=== PATIENT | female | born 1985 | race Hispanic/Latino ===

== ENCOUNTER 2017-08-12 08:56 | Inpatient (IN) | payer SELFPAY ==
[~2017-08-12] VITALS: Ht 152.4 cm; Wt 72.6 kg
[2017-08-12 09:19] LABS: APPEARANCE,URINE Cloudy (CLEAR); BILIRUBIN,URINE Negative (NEGATIVE); COLOR,URINE Yellow (YELLOW); GLUCOSE, URINE (UA) Negative (NEGATIVE); KETONES,URINE Negative (NEGATIVE); LEUKOCYTE ESTERASE ,URINE Moderate (NEGATIVE); NITRATE,URINE Negative (NEGATIVE); OCCULT BLOOD,URINE Small (NEGATIVE); PH,URINE 5.5 (5.0-8.0); PROTEIN,URINE Trace (NEGATIVE)
[2017-08-12 09:20] LABS: HCG,QUAL RESULT NEGATIVE (NEGATIVE)
[2017-08-12 09:27] LABS: BACTERIA,URINE Few /HPF (None Seen); SQUAMOUS EPITHELIAL CELL,UR Moderate /HPF (0-2)
[2017-08-12 09:54] LABS: BASOPHILS % (AUTO) 0.3 % (0.0-5.0); EOSINOPHILS % (AUTO) 0.1 % (0.0-8.0); HEMATOCRIT 38.3 % (36-48); LYMPHOCYTES % (AUTO) 10.1 % (21.0-51.0); MEAN CORPUSCULAR HEMOGLOBIN 27.7 pg (27.0-33.0); MEAN CORPUSCULAR HGB CONC 32.8 g/dL (32.0-36.0); MEAN CORPUSCULAR VOLUME 84.6 fL (79-99); MONOCYTES % (AUTO) 8.3 % (3.0-13.0); NEUTROPHILS % (AUTO) 81.2 % (40.0-77.0); PLATELET COUNT (AUTO) 284 K/uL (130-400); RED BLOOD CELL COUNT(AUTO) 4.53 MIL/uL (4.00-5.50); RED CELL DISTRIBUTION WIDTH 13.5 % (11.0-15.5); WHITE BLOOD COUNT (AUTO) 19.8 K/uL (4.8-10.8)
[2017-08-12 10:01] LABS: CREATININE 1.2 mg/dL (0.5-1.5); POTASSIUM 3.8 mmol/L (3.5-5.1)
[2017-08-12] MEDS ORDERED: KETOROLAC TROMETHAMINE 30MG/ML ONE (10:01)
[2017-08-12] MEDS ORDERED: SODIUM CHLORIDE 0.9% 1000ML 1,000 ML IV ONE (10:01)
[2017-08-12] MEDS ORDERED: HYOSCYAMINE SULFATE 0.125 MG TAB.SUBL SL ONE (10:01)
[2017-08-12] MEDS ORDERED: ACETAMINOPHEN 325 MG TAB ONE (10:01)
[2017-08-12] MEDS ORDERED: ONDANSETRON HCL MDV 20ML 2 MG/ML VIAL ONE (10:02)
[2017-08-12 10:06] LABS: ALBUMIN 3.6 g/dL (3.5-5.0); BILIRUBIN,TOTAL 1.3 mg/dL (0.2-1.0)
[2017-08-12] MEDS ORDERED: IOPAMIDOL-370 75 ML VIAL IV ONE (11:10)
[2017-08-12] MEDS ORDERED: MORPHINE SULFATE 4 MG/1ML SYG ONE (11:59)
[2017-08-12] MEDS ORDERED: CEFTRIAXONE SODIUM 1 GM ONE (13:02)
[2017-08-12] MEDS ORDERED: ACETAMINOPHEN 325 MG TAB PO PRN (14:30)
[2017-08-12] MEDS ORDERED: LACTULOSE 20 GM/30 ML UDCUP PO PRN (14:30)
[2017-08-12] MEDS ORDERED: CEFTRIAXONE 1GM/D5W 50ML 50 ML IV SCH (14:30)
[2017-08-12] MEDS: SODIUM CHLORIDE 0.9% 1000ML 1,000 ML IV SCH ×2 (14:30→15:40)
[2017-08-12] MEDS ORDERED: MORPHINE SULFATE 2 MG/ML 1ML SYG IV PRN (14:30)
[2017-08-12] MEDS ORDERED: HYDRALAZINE HCL 20 MG/ML VIAL IV PRN (14:30)
[2017-08-12] MEDS: CEFTRIAXONE SODIUM 1 GM IVP SCH (15:00)
[2017-08-12 16:18] VITALS: BP 105/78
[2017-08-12 20:00] VITALS: BP 119/78
[2017-08-12] MEDS: FAMOTIDINE 20MG TAB 20 MG TAB PO SCH (20:33)
[2017-08-12] MEDS: KETOROLAC TROMETHAMINE 15MG/ML IV PRN (22:01)
[2017-08-12] MEDS: ONDANSETRON HCL MDV 20ML 2 MG/ML VIAL IV PRN (22:01)
[2017-08-12 23:53] VITALS: BP 108/68
[2017-08-13] VITALS (25 sets, daily range): BP systolic 90–139; BP diastolic 64–94
[2017-08-13] MEDS: SODIUM CHLORIDE 0.9% 1000ML 1,000 ML IV SCH ×4 (03:12→22:56)
[2017-08-13 05:19] LABS: HEMATOCRIT 33.8 % (36-48); MEAN CORPUSCULAR HEMOGLOBIN 28.7 pg (27.0-33.0); MEAN CORPUSCULAR HGB CONC 33.4 g/dL (32.0-36.0); PLATELET COUNT (AUTO) 264 K/uL (130-400); RED BLOOD CELL COUNT(AUTO) 3.93 MIL/uL (4.00-5.50); RED CELL DISTRIBUTION WIDTH 13.6 % (11.0-15.5); WHITE BLOOD COUNT (AUTO) 15.4 K/uL (4.8-10.8)
[2017-08-13 05:27] LABS: CREATININE 1.2 mg/dL (0.5-1.5); POTASSIUM 4.2 mmol/L (3.5-5.1)
[2017-08-13] MEDS: KETOROLAC TROMETHAMINE 15MG/ML IV PRN (06:29)
[2017-08-13] MEDS: ONDANSETRON HCL MDV 20ML 2 MG/ML VIAL IV PRN (06:30)
[2017-08-13] MEDS: FAMOTIDINE 20MG TAB 20 MG TAB PO SCH ×2 (07:18→20:39)
[2017-08-13] MEDS: ENOXAPARIN SODIUM 40 MG/0.4 ML SYRINGE SQ SCH (07:19)
[2017-08-13] MEDS ORDERED: LACTATED RINGERS 1000ML 1,000 ML IV ONE (10:35)
[2017-08-13] MEDS ORDERED: ISOVUE-370 50ML VIAL IV ONE (12:39)
[2017-08-13] MEDS ORDERED: DEXAMETHASONE SOD PHOSPHATE 10MG/ML 1ML VIAL ONE (12:57)
[2017-08-13] MEDS ORDERED: MIDAZOLAM HCL 1 MG/ML 2ML VIAL ONE (12:57)
[2017-08-13] MEDS ORDERED: GLYCOPYRROLATE 0.2 MG/ML 5 ML VIAL ONE (12:57)
[2017-08-13] MEDS ORDERED: LIDOCAINE PF 2% 5ML ABBOJECT ONE (12:57)
[2017-08-13] MEDS ORDERED: FENTANYL CITRATE PF 50 MCG/1 ML 2ML VIAL ONE (12:58)
[2017-08-13] MEDS ORDERED: PROPOFOL 10 MG/ML 20ML VIAL IV ONE (12:58)
[2017-08-13] MEDS: CEFTRIAXONE SODIUM 1 GM IVP SCH ×2 (13:30→15:00)
[2017-08-13] MEDS ORDERED: KETOROLAC TROMETHAMINE 30MG/ML ONE (14:51)
[2017-08-14 04:00] VITALS: BP 122/81
[2017-08-14 05:02] LABS: HEMATOCRIT 34.3 % (36-48); MEAN CORPUSCULAR HEMOGLOBIN 28.1 pg (27.0-33.0); MEAN CORPUSCULAR HGB CONC 32.7 g/dL (32.0-36.0); MEAN CORPUSCULAR VOLUME 85.7 fL (79-99); PLATELET COUNT (AUTO) 297 K/uL (130-400); RED CELL DISTRIBUTION WIDTH 13.4 % (11.0-15.5); WHITE BLOOD COUNT (AUTO) 14.7 K/uL (4.8-10.8)
[2017-08-14 05:07] LABS: CREATININE 0.9 mg/dL (0.5-1.5); POTASSIUM 3.8 mmol/L (3.5-5.1)
[2017-08-14 07:30] VITALS: BP 125/78
[2017-08-14] MEDS: FAMOTIDINE 20MG TAB 20 MG TAB PO SCH ×2 (10:19→21:01)
[2017-08-14] MEDS: TAMSULOSIN HCL 0.4 MG CAP.ER.24H PO SCH (10:19)
[2017-08-14] MEDS: ENOXAPARIN SODIUM 40 MG/0.4 ML SYRINGE SQ SCH (10:27)
[2017-08-14 11:00] VITALS: BP 130/84
[2017-08-14] MEDS: CEFTRIAXONE SODIUM 1 GM IVP SCH (15:17)
[2017-08-14 16:00] VITALS: BP 120/85
[2017-08-14 19:43] VITALS: BP 144/96
[2017-08-14] MEDS: SODIUM CHLORIDE 0.9% 1000ML 1,000 ML IV SCH (20:51)
[2017-08-14 23:44] VITALS: BP 136/87
[2017-08-15 04:00] VITALS: BP 135/81
[2017-08-15 06:00] LABS: BASOPHILS % (AUTO) 0.6 % (0.0-5.0); EOSINOPHILS % (AUTO) 2.1 % (0.0-8.0); HEMATOCRIT 35.4 % (36-48); LYMPHOCYTES % (AUTO) 16.6 % (21.0-51.0); MEAN CORPUSCULAR HEMOGLOBIN 27.6 pg (27.0-33.0); MEAN CORPUSCULAR HGB CONC 32.5 g/dL (32.0-36.0); MEAN CORPUSCULAR VOLUME 84.9 fL (79-99); MONOCYTES % (AUTO) 7.6 % (3.0-13.0); NEUTROPHILS % (AUTO) 73.1 % (40.0-77.0); PLATELET COUNT (AUTO) 308 K/uL (130-400); RED BLOOD CELL COUNT(AUTO) 4.17 MIL/uL (4.00-5.50); RED CELL DISTRIBUTION WIDTH 13.1 % (11.0-15.5); WHITE BLOOD COUNT (AUTO) 14.2 K/uL (4.8-10.8)
[2017-08-15 06:08] LABS: CREATININE 0.8 mg/dL (0.5-1.5); POTASSIUM 3.8 mmol/L (3.5-5.1)
[2017-08-15 08:00] VITALS: BP 129/89
[2017-08-15] MEDS: TAMSULOSIN HCL 0.4 MG CAP.ER.24H PO SCH (09:34)
[2017-08-15] MEDS: FAMOTIDINE 20MG TAB 20 MG TAB PO SCH (09:35)
[2017-08-15] MEDS: ENOXAPARIN SODIUM 40 MG/0.4 ML SYRINGE SQ SCH (09:35)
[2017-08-15 11:46] VITALS: BP 127/84
[2017-08-15] MEDS ORDERED: CEPH-578 PO (15:45)
[2017-08-15 16:00] VITALS: BP 138/93
== END 2017-08-15 17:55 | disposition home or self-care (01) | DRG 872 ==
LOC: EDH 08:56 → EDHIP 08:57 → 4CH 14:53
PROVIDERS: ADMIT Family Medicine; ATTEND Family Medicine
PROC: 0T788DZ Dilation of Bilateral Ureters with Intraluminal Device, Via Natural or Artificial Opening Endoscopic (ICD-10-PCS; principal; 2017-08-13 13:12)
DX: A41.9 Sepsis, unspecified organism (principal); E66.9 Obesity, unspecified; N13.2 Hydronephrosis with renal and ureteral calculous obstruction; N39.0 Urinary tract infection, site not specified; Z87.442 Personal history of urinary calculi; Z68.31 Body mass index [BMI] 31.0-31.9, adult; Z91.19 Patient's noncompliance with other medical treatment and regimen
CPT/HCPCS: 36415; 74177; 74420; 76700; 80048; 80053; 81001; 81025; 83690; 83735; 85025; 85027; 87040; 87088; A4218; A4344; A4354; C1758; C1769; C2617; J0696; J1100; J1650; J1885; J2001; J2250; J2270; J2704; J3010; J3490; J7030; J7120; Q9967

== ENCOUNTER 2017-09-02 19:16 | Observation (INO) | payer SELFPAY ==
[~2017-09-02] VITALS: Ht 152.4 cm; Wt 77.4 kg
[~2017-09-02 19:16] MED LIST: CEPH-578 PO
[2017-09-02 19:50] LABS: BASOPHILS % (AUTO) 0.8 % (0.0-5.0); EOSINOPHILS % (AUTO) 5.3 % (0.0-8.0); HEMATOCRIT 37.1 % (36-48); LYMPHOCYTES % (AUTO) 18.8 % (21.0-51.0); MEAN CORPUSCULAR HEMOGLOBIN 28.5 pg (27.0-33.0); MEAN CORPUSCULAR HGB CONC 33.6 g/dL (32.0-36.0); MEAN CORPUSCULAR VOLUME 84.7 fL (79-99); MONOCYTES % (AUTO) 5.3 % (3.0-13.0); NEUTROPHILS % (AUTO) 69.8 % (40.0-77.0); NUCLEATED RED BLOOD CELLS 0.1 % (0.0-0.19); PLATELET COUNT (AUTO) 348 K/uL (130-400); RED BLOOD CELL COUNT(AUTO) 4.38 MIL/uL (4.00-5.50); RED CELL DISTRIBUTION WIDTH 13.8 % (11.0-15.5); WHITE BLOOD COUNT (AUTO) 12.7 K/uL (4.8-10.8)
[2017-09-02 19:56] LABS: CREATININE 0.9 mg/dL (0.5-1.5); POTASSIUM 3.5 mmol/L (3.5-5.1)
[2017-09-02] MEDS ORDERED: ACETAMINOPHEN-CODEINE ELIXIR 5 ML UDCUP ONE (20:00)
[2017-09-02 20:25] LABS: APPEARANCE,URINE Turbid (CLEAR); BILIRUBIN,URINE Small (NEGATIVE); COLOR,URINE Red (YELLOW); GLUCOSE, URINE (UA) Negative (NEGATIVE); KETONES,URINE Negative (NEGATIVE); LEUKOCYTE ESTERASE ,URINE Large (NEGATIVE); NITRATE,URINE Negative (NEGATIVE); OCCULT BLOOD,URINE Large (NEGATIVE); PROTEIN,URINE 300 (NEGATIVE); UROBILINOGEN,URINE 0.2 mg/dL (0.2-1.0)
[2017-09-02 20:39] LABS: RBC,URINE TNTC /HPF (0-1)
[2017-09-02 20:40] LABS: BACTERIA,URINE Rare /HPF (None Seen)
[2017-09-02 20:41] LABS: SQUAMOUS EPITHELIAL CELL,UR Rare /HPF (0-2)
[2017-09-02] MEDS ORDERED: CEFTRIAXONE SODIUM 1 GM ONE (21:11)
[2017-09-03] VITALS (22 sets, daily range): BP systolic 91–127; BP diastolic 61–88
[2017-09-03] MEDS ORDERED: ONDANSETRON HCL MDV 20ML 2 MG/ML VIAL IVP PRN (02:00)
[2017-09-03] MEDS ORDERED: MORPHINE SULFATE 2 MG/ML 1ML SYG IVP PRN (02:00)
[2017-09-03] MEDS ORDERED: KETOROLAC TROMETHAMINE 15MG/ML IV PRN (02:00)
[2017-09-03] MEDS ORDERED: KETOROLAC TROMETHAMINE 15MG/ML ONE (02:05)
[2017-09-03] MEDS: SODIUM CHLORIDE 0.9% 1000ML 1,000 ML IV SCH ×2 (03:30→13:30)
[2017-09-03] MEDS ORDERED: SODIUM CHLORIDE 0.9% 1000ML 1,000 ML IV ONE (03:31)
[2017-09-03 05:17] LABS: INR 0.94 (0.85-1.15); PARTIAL THROMBOPLASTIN TIME 27.2 SEC (26.3-35.5); PROTHROMBIN TIME 9.9 SEC (9.6-11.6)
[2017-09-03] MEDS ORDERED: CEFTRIAXONE SODIUM 1 GM IVP SCH (09:00)
[2017-09-03] MEDS ORDERED: ISOVUE-370 50ML VIAL IV ONE (10:30)
[2017-09-03] MEDS ORDERED: PROPOFOL 10 MG/ML 20ML VIAL IV ONE (10:56)
[2017-09-03] MEDS ORDERED: MIDAZOLAM HCL 1 MG/ML 2ML VIAL ONE (10:56)
[2017-09-03] MEDS ORDERED: FENTANYL CITRATE PF 50 MCG/1 ML 2ML VIAL ONE (10:56)
[2017-09-03] MEDS ORDERED: LEVO500T2 PO (12:43)
[2017-09-03] MEDS ORDERED: ONDANSETRON HCL 4 MG/2 ML VIAL ONE (12:43)
[2017-09-03] MEDS ORDERED: ROCURONIUM BROMIDE 10MG/1ML 5ML VL ONE (12:43)
[2017-09-03] MEDS ORDERED: LIDOCAINE PF 2% 5ML ABBOJECT ONE (12:43)
[2017-09-03] MEDS ORDERED: SUCCINYLCHOLINE CHLORIDE 20 MG/ML 10 ML VIAL ONE (12:43)
[2017-09-03] MEDS ORDERED: SUB TO ALBUTEROL 2.5MG/3ML NEBULES PER P&T IH ONE (12:43)
[2017-09-03] MEDS ORDERED: MEPERIDINE-PF 25 MG/ML SYG ONE (12:58)
[2017-09-03] MEDS ORDERED: KETOROLAC TROMETHAMINE 30MG/ML ONE (13:28)
== END 2017-09-03 18:30 | disposition home or self-care (01) ==
LOC: EDH 19:16 → EDHIP 19:17 → 3CH 09-03 01:15
PROVIDERS: ADMIT Family Medicine; ATTEND Family Medicine
DX: N20.2 Calculus of kidney with calculus of ureter (principal); E66.9 Obesity, unspecified; Z82.49 Family history of ischemic heart disease and other diseases of the circulatory system; Z87.442 Personal history of urinary calculi
CPT/HCPCS: 36415 ×2; 52332; 76000; 80048; 81001; 85025; 85610; 85730; 88300; 93005; 96374; 96375; 99285; A4218; A4354; A4358; A4510; A4649; C1758; C1769; C1894; C2617; G0378 ×23; J0330; J0696 ×2; J1885 ×2; J2001; J2175; J2250; J2405; J2704; J3010; J3490; J7030 ×2; J7120; Q9967

== ENCOUNTER 2017-09-09 03:53 | Inpatient (IN) | payer OTHER ==
[2017-09-09] VITALS (20 sets, daily range): BP systolic 103–128; BP diastolic 54–92
[~2017-09-09] VITALS: Ht 152.4 cm; Wt 77.0 kg
[~2017-09-09 03:53] MED LIST changes: -CEPH-578 PO; +LEVO500T2 PO
[2017-09-09 04:22] LABS: APPEARANCE,URINE SL CLOUDY (CLEAR); BILIRUBIN,URINE NEGATIVE (NEGATIVE); COLOR,URINE YELLOW (YELLOW); GLUCOSE, URINE (UA) NEGATIVE (NEGATIVE); HCG,QUAL RESULT NEGATIVE (NEGATIVE); KETONES,URINE NEGATIVE (NEGATIVE); LEUKOCYTE ESTERASE ,URINE MODERATE (NEGATIVE); NITRATE,URINE NEGATIVE (NEGATIVE); OCCULT BLOOD,URINE LARGE (NEGATIVE); PH,URINE 6.5 (5.0-8.0); PROTEIN,URINE >=300 (NEGATIVE); UROBILINOGEN,URINE 0.2 mg/dL (0.2-1.0)
[2017-09-09 04:27] LABS: RBC,URINE 26-50 /HPF (0-1); WBC,URINE 51-100 /HPF (0-1)
[2017-09-09 04:28] LABS: BACTERIA,URINE Moderate /HPF (None Seen)
[2017-09-09] MEDS ORDERED: ONDANSETRON HCL 4 MG/2 ML VIAL ONE ×2 (04:41→12:30)
[2017-09-09] MEDS ORDERED: KETOROLAC TROMETHAMINE 15MG/ML ONE (04:42)
[2017-09-09] MEDS ORDERED: MORPHINE SULFATE 4 MG/1ML SYG ONE ×2 (04:43→10:12)
[2017-09-09] MEDS ORDERED: SODIUM CHLORIDE 0.9% 500ML 500 ML IV ONE (04:43)
[2017-09-09 09:51] LABS: CREATININE 2.9 mg/dL (0.5-1.5); POTASSIUM 4.7 mmol/L (3.5-5.1)
[2017-09-09] MEDS ORDERED: ONDANSETRON HCL MDV 20ML 2 MG/ML VIAL ONE (10:11)
[2017-09-09] MEDS ORDERED: ISOVUE-370 50ML VIAL IV ONE (12:06)
[2017-09-09] MEDS ORDERED: LACTATED RINGERS 1000ML 1,000 ML IV ONE (12:10)
[2017-09-09] MEDS: CEFTRIAXONE SODIUM 1 GM ONE ×2 (12:17→12:51)
[2017-09-09] MEDS ORDERED: ONDANSETRON HCL 4 MG/2 ML VIAL IVP ONE (12:26)
[2017-09-09] MEDS ORDERED: GLYCOPYRROLATE 0.2 MG/ML 5 ML VIAL IM ONE (12:26)
[2017-09-09] MEDS ORDERED: DEXAMETHASONE SOD PHOSPHATE 10MG/ML 1ML VIAL IM ONE (12:26)
[2017-09-09] MEDS ORDERED: LIDOCAINE PF 2% 5ML ABBOJECT IVP ONE (12:26)
[2017-09-09] MEDS ORDERED: PROPOFOL 10 MG/ML 20ML VIAL IV ONE ×2 (12:27→12:30)
[2017-09-09] MEDS ORDERED: NEOSTIGMINE 5MG/5ML SYR IV ONE ×3 (12:27→13:08)
[2017-09-09] MEDS ORDERED: DEXAMETHASONE SOD PHOSPHATE 10MG/ML 1ML VIAL ONE (12:30)
[2017-09-09] MEDS ORDERED: LIDOCAINE PF 2% 5ML ABBOJECT ONE (12:30)
[2017-09-09] MEDS ORDERED: MIDAZOLAM HCL 1 MG/ML 2ML VIAL ONE (12:30)
[2017-09-09] MEDS ORDERED: GLYCOPYRROLATE 0.2 MG/ML 5 ML VIAL ONE ×2 (12:30→13:09)
[2017-09-09] MEDS ORDERED: FENTANYL CITRATE PF 50 MCG/1 ML 2ML VIAL ONE ×2 (12:30→13:08)
[2017-09-09] MEDS ORDERED: ARTIFICIAL TEARS 3.5 GM OINTMENT ONE (13:08)
[2017-09-09] MEDS ORDERED: ROCURONIUM BROMIDE 10MG/1ML 5ML VL ONE (13:08)
[2017-09-09] MEDS ORDERED: SUCCINYLCHOLINE CHLORIDE 20 MG/ML 10 ML VIAL ONE (13:08)
[2017-09-09] MEDS ORDERED: LIDOCAINE HCL 2% JELLY 5 ML ONE (13:09)
[2017-09-09 14:19] LABS: CREATININE 3.2 mg/dL (0.5-1.5)
[2017-09-09] MEDS: LACTATED RINGERS 1000ML 1,000 ML IV SCH (15:30)
[2017-09-09] MEDS ORDERED: HYDROCODONE/ACETAMINOPHEN 5/325 MG TAB PO PRN ×2 (15:45)
[2017-09-10 00:25] VITALS: BP_SYST 100; BP_SYST 105; BP_DIAS 61; BP_DIAS 63
[2017-09-10 04:15] VITALS: BP 108/57
[2017-09-10 04:50] LABS: HEMATOCRIT 33.2 % (36-48); MEAN CORPUSCULAR HEMOGLOBIN 28.9 pg (27.0-33.0); MEAN CORPUSCULAR HGB CONC 33.8 g/dL (32.0-36.0); MEAN CORPUSCULAR VOLUME 85.3 fL (79-99); PLATELET COUNT (AUTO) 295 K/uL (130-400); RED BLOOD CELL COUNT(AUTO) 3.89 MIL/uL (4.00-5.50); RED CELL DISTRIBUTION WIDTH 13.7 % (11.0-15.5); WHITE BLOOD COUNT (AUTO) 15.7 K/uL (4.8-10.8)
[2017-09-10 04:56] LABS: CREATININE 0.9 mg/dL (0.5-1.5); POTASSIUM 4.4 mmol/L (3.5-5.1)
[2017-09-10 07:54] VITALS: BP 115/69
[2017-09-10] MEDS ORDERED: CEFTRIAXONE 1GM/D5W 50ML 50 ML IV SCH (12:00)
[2017-09-10 12:11] VITALS: BP 109/69
[2017-09-10] MEDS: LACTATED RINGERS 1000ML 1,000 ML IV SCH ×2 (13:46)
[2017-09-10] MEDS: CEFTRIAXONE SODIUM 1 GM IVP SCH (13:47)
[2017-09-10 16:42] VITALS: BP 111/74
[2017-09-10 19:20] VITALS: BP 129/86
[2017-09-11] MEDS: LACTATED RINGERS 1000ML 1,000 ML IV SCH ×3 (02:16→22:24)
[2017-09-11 04:15] VITALS: BP 131/83
[2017-09-11 08:02] VITALS: BP 125/86
[2017-09-11 10:55] VITALS: BP 120/66
[2017-09-11] MEDS: CEFTRIAXONE SODIUM 1 GM IVP SCH (11:00)
[2017-09-11 17:29] VITALS: BP 102/79
[2017-09-11 19:00] VITALS: BP 112/77
[2017-09-11 23:00] VITALS: BP 108/66
[2017-09-12 03:00] VITALS: BP 116/73
[2017-09-12] MEDS: LACTATED RINGERS 1000ML 1,000 ML IV SCH (03:30)
[2017-09-12 04:02] LABS: HEMATOCRIT 35.5 % (36-48); MEAN CORPUSCULAR HEMOGLOBIN 28.6 pg (27.0-33.0); MEAN CORPUSCULAR HGB CONC 33.4 g/dL (32.0-36.0); MEAN CORPUSCULAR VOLUME 85.5 fL (79-99); PLATELET COUNT (AUTO) 330 K/uL (130-400); RED BLOOD CELL COUNT(AUTO) 4.15 MIL/uL (4.00-5.50); RED CELL DISTRIBUTION WIDTH 13.5 % (11.0-15.5); WHITE BLOOD COUNT (AUTO) 12.5 K/uL (4.8-10.8)
[2017-09-12 04:28] LABS: CREATININE 0.8 mg/dL (0.5-1.5); POTASSIUM 4.2 mmol/L (3.5-5.1)
[2017-09-12 08:00] VITALS: BP 115/82
[2017-09-12] MEDS: CEFUROXIME AXETIL 250 MG TABLET PO SCH ×2 (09:15→20:35)
[2017-09-12 11:51] VITALS: BP 110/74
[2017-09-12 16:00] VITALS: BP 119/76
[2017-09-12 19:00] VITALS: BP 108/73
[2017-09-12 23:00] VITALS: BP 102/69
[2017-09-13 03:57] VITALS: BP 108/72
[2017-09-13 08:13] VITALS: BP 115/73
[2017-09-13] MEDS: CEFUROXIME AXETIL 250 MG TABLET PO SCH (08:28)
[2017-09-13] MEDS ORDERED: Cefuroxime Axetil PO (10:17)
[2017-09-13 10:38] LABS: BASOPHILS % (AUTO) 0.5 % (0.0-5.0); EOSINOPHILS % (AUTO) 4.3 % (0.0-8.0); HEMATOCRIT 36.7 % (36-48); MEAN CORPUSCULAR HEMOGLOBIN 27.9 pg (27.0-33.0); MEAN CORPUSCULAR HGB CONC 33.1 g/dL (32.0-36.0); MEAN CORPUSCULAR VOLUME 84.4 fL (79-99); MONOCYTES % (AUTO) 7.1 % (3.0-13.0); NEUTROPHILS % (AUTO) 65.1 % (40.0-77.0); PLATELET COUNT (AUTO) 363 K/uL (130-400); RED BLOOD CELL COUNT(AUTO) 4.35 MIL/uL (4.00-5.50); RED CELL DISTRIBUTION WIDTH 13.5 % (11.0-15.5); WHITE BLOOD COUNT (AUTO) 12.3 K/uL (4.8-10.8)
[2017-09-13 12:08] VITALS: BP 97/55
== END 2017-09-13 13:20 | disposition home or self-care (01) | DRG 694 ==
LOC: EDH 03:53 → EDHIP 03:54 → OBSVTOIN 03:54 → 3CH 15:00
PROVIDERS: ADMIT Internal Medicine; ATTEND Internal Medicine
PROC: 0T768DZ Dilation of Right Ureter with Intraluminal Device, Via Natural or Artificial Opening Endoscopic (ICD-10-PCS; principal; 2017-09-09 12:40)
PROC: BT1F1ZZ Fluoroscopy of Left Kidney, Ureter and Bladder using Low Osmolar Contrast (ICD-10-PCS; 2017-09-09 12:40)
PROC: BT1D1ZZ Fluoroscopy of Right Kidney, Ureter and Bladder using Low Osmolar Contrast (ICD-10-PCS; 2017-09-09 12:40)
DX: N13.2 Hydronephrosis with renal and ureteral calculous obstruction (principal); N17.9 Acute kidney failure, unspecified; D72.829 Elevated white blood cell count, unspecified; N21.0 Calculus in bladder; Z87.442 Personal history of urinary calculi
CPT/HCPCS: 36415; 74176; 74420; 80048; 81001; 81025; 85025; 85027; 87088; A4218; A4354; C1758; C1769; C2617; J0330; J0696; J1100; J1885; J2001; J2250; J2270; J2405; J2704; J2710; J3010; J3490; J7040; J7120; Q9967